=== PATIENT | male | born 1970 | race Caucasian/White ===

== ENCOUNTER 2017-09-22 15:18 | Emergency (ER) | payer MEDICAID, MEDICARE, OTHER ==
[~2017-09-22] VITALS: Ht 167.6 cm; Wt 68.0 kg
[2017-09-22 16:44] LABS: Basophils # (auto) 0.1 uL; Basophils % (auto) 0.9 % (0.0-2.0); Eosinophils # (auto) 0.3 uL; Eosinophils % (auto) 3.2 % (0.0-7.0); Hematocrit 45.1 % (41.0-53.0); Hemoglobin 15.5 g/dL (13.5-17.5); Lymphocytes # (auto) 2.2 uL; Lymphocytes % (auto) 26.5 % (10.0-50.0); Mean Corpuscular Hemoglobin 32.6 pg (28.0-32.0); Mean Corpuscular Hgb Conc. 34.3 g/dL (32.0-36.0); Mean Corpuscular Volume 95.1 fL (80.0-100.0); Monocytes # (auto) 0.6 uL; Monocytes % (auto) 7.3 % (0.0-12.0); Neutrophils # (auto) 5.3 uL; Neutrophils % (auto) 62.1 % (37.0-80.0); Platelet Count (auto) 267 10^3/uL (140-450); Red Blood Cells 4.74 10^6/uL (4.5-5.90); Red Cell Distribution Width 13.3 % (11.8-14.3); White Blood Cell 8.5 10^3/uL (4.4-10.8)
[2017-09-22 16:52] LABS: Alanine Aminotransferase 75 U/L (16-61); Albumin 3.7 g/dL (3.4-5.0); Anion Gap 8 (5-15); Aspartate Aminotransferase 43 U/L (15-37); BUN/Creatinine Ratio 12.8; Blood Urea Nitrogen 14 mg/dL (7-18); Calcium 8.2 mg/dL (8.5-10.1); Carbon Dioxide 29 mmol/L (21-32); Chloride 104 mmol/L (98-107); GFR African American 93 mL/min; GFR Non-African American 77 mL/min; Glucose 99 mg/dL (74-106); Magnesium 2.2 mg/dL (1.6-2.6); Potassium 3.6 mmol/L (3.5-5.1); Sodium 141 mmol/L (136-145)
[2017-09-22 16:57] LABS: Alkaline Phosphatase 100 U/L (45-117); Bilirubin, Total 0.3 mg/dL (0.2-1.0); Total Protein 7.3 g/dL (6.4-8.2)
[2017-09-22 18:12] VITALS: BP 143/113
== END 2017-09-22 18:17 | disposition home or self-care (01) ==
LOC: ER 15:18
DX: R07.89 Other chest pain (principal); F15.90 Other stimulant use, unspecified, uncomplicated; R11.2 Nausea with vomiting, unspecified; R42 Dizziness and giddiness; I25.2 Old myocardial infarction; F17.210 Nicotine dependence, cigarettes, uncomplicated; R50.9 Fever, unspecified; Z88.0 Allergy status to penicillin; Z88.8 Allergy status to other drugs, medicaments and biological substances
CPT/HCPCS: 36415; 70450; 71046; 80053; 83735; 84484; 85025; 93005; 94761

== ENCOUNTER 2024-07-20 04:09 | Inpatient (IN) | payer MEDICAID, MEDICARE ==
[~2024-07-20] VITALS: Ht 167.6 cm; Wt 81.2 kg
--- NOTE | 2024-07-20 04:26 | ED.PDOC ---
History of Present Illness HPI Comments 53 y/o M presents with c/o left-sided facial droop, left-sided weakness, and slurred speech, today. Patient endorses on sudden and unprovoked onset of symptoms, this morning, an hour prior to ED arrival, with no history of in the past. He denies any additional associated symptoms at this time. Time Seen by MD: 04:15 Primary Care Provider: CARMINE Reviewed Notes: Nurses Notes, Medications, Allergies Allergies: Coded Allergies: Amitriptyline (Verified Allergy, Unknown, 09/22/17) Haloperidol (Verified Allergy, Unknown, 09/22/17) Iodine (Verified Allergy, Unknown, 07/20/24) Ketorolac Tromethamine (Verified Allergy, Unknown, 07/20/24) Penicillins (Verified Allergy, Unknown, 09/22/17) Quetiapine (Verified Allergy, Unknown, 09/22/17) Information Source: Patient Mode of Arrival: Ambulatory Severity: Moderate Timing: Hours Duration: Since onset Prehospital treatment: None Past Medical History PAST MEDICAL HISTORY: [place] Surgical History: Hernia Repair Surgical History (Other): angioplasty Family History Family History: Unknown Social History Smoker: Cigarettes Alcohol: Denies ETOH Use Drugs: Marijuana, Methamphetamine Lives In: Home All Other Systems: Reviewed and Negative (Comprehensive systems review obtained and negative except for what is stated in the HPI.) Physical Exam General Appearance: Mild Distress HEENT: Normal ENT Inspection, Pharynx Normal, TMs Normal Neck: Full Range of Motion, Non-Tender, Normal, Normal Inspection Respiratory: Chest Non-Tender, Lungs Clear, No Accessory Muscle Use, No Respi ratory Distress, Normal Breath Sounds Cardiovascular: No Edema, No JVD, No Murmur, No Gallop, Normal Peripheral Pulses, Regular Rate/Rhythm Breast Exam: Deferred Gastrointestinal: No Organomegaly, Non Tender, No Pulsatile Mass, Normal Bowel Sounds, Soft Genitalia: Deferred Pelvic: Deferred Rectal: Deferred Extremities: No calf tenderness, Normal capillary refill, Normal inspection, Normal range of motion, Non-tender, No pedal edema Musculoskeletal : Apperance: Normal Neurologic: Facial Droop, Motor Weakness, Sensory Deficit, Other (NIH Stroke Scale/Score (NIHSS) from [email or web address] on 07/20/2024) Cerebellar Function: Normal Reflexes: Normal Skin: Dry, Normal Color, Warm Lymphatic: No Adenopathy Was a procedure done? Was a procedure done?: No Differential Dx Considerations may include: CVA, TIA, cerebral palsy, among others X-Ray, Labs, Meds, VS Vital Signs Date Time Temp Pulse Resp B/P (MAP) Pulse Ox O2 Delivery O2 Flow Rate FiO2 07/20/24 05:33 79 11 138/95 07/20/24 05:03 87 12 142/113 07/20/24 04:35 98.3 87 12 142/113 (123) 96 98.3 07/20/24 04:35 12 96 Room Air* 0 21 07/20/24 04:21 97.9 105 19 170/113 (132) 96 97.9 Lab Test 07/20/24 05:26 07/20/24 04:21 Range/Units Troponin I High Sensitivity Pending 5 </=54 ng/L White Blood Count 7.0 4.4-10.8 10^3/uL Red Blood Count 5.03 4.5-5.90 10^6/uL Hemoglobin 16.3 13.5-17.5 g/dL Hematocrit 48.3 41.0-53.0 % Mean Corpuscular Volume 96.1 80.0-100.0 fL Mean Corpuscular Hemoglobin 32.5 H 28.0-32.0 pg Mean Corpuscular Hemoglobin Concent 33.8 32.0-36.0 g/dL Red Cell Distribution Width 12.7 11.8-14.3 % Platelet Count 238 140-450 10^3/uL Mean Platelet Volume 9.1 6.9-10.8 fL Neutrophils (%) (Auto) 75.2 37.0-80.0 % Lymphocytes (%) (Auto) 19.9 10.0-50.0 % Monocytes (%) (Auto) 3.9 0.0-12.0 % Eosinophils (%) (Auto) 0.5 0.0-7.0 % Basophils (%) (Auto) 0.5 0.0-2.0 % Neutrophils # (Auto) 5.2 1.6-8.6 10 ^3/uL Lymphocytes # (Auto) 1.4 0.4-5.4 10 ^3/uL Monocytes # (Auto) 0.3 0-1.3 10 ^3/uL Eosinophils # (Auto) 0 0-0.8 10 ^3/uL Basophils # (Auto) 0 0-0.2 10 ^3/uL Nucleated Red Blood Cells 0.1 % Prothrombin Time 10.8 9.3-11.8 sec Prothrombin Time INR 1.02 0.9-1.15 Activated Partial Thromboplast Time 26.6 24.5-34.5 SEC Sodium Level 139 136-145 mmol/L Potassium Level 3.2 L 3.5-5.1 mmol/L Chloride Level 105 98-107 mmol/L Carbon Dioxide Level 24 20-31 mmol/L Anion Gap 10 5-15 Blood Urea Nitrogen 11 9-23 mg/dL Creatinine 0.88 0.700-1.30 mg/dL Glomerular Filtration Rate Calc 103 >90 mL/min BUN/Creatinine Ratio 12.5 10.0-20.0 Serum Glucose 122 H 74-106 mg/dL Calcium Level 9.9 8.7-10.4 mg/dL Magnesium Level 2.5 1.6-2.6 mg/dL Total Bilirubin 1.1 H 0.2-1.0 mg/dL Aspartate Amino Transferase (AST) 32 13-40 U/L Alanine Aminotransferase (ALT) 28 7-40 U/L Alkaline Phosphatase 73 46-116 U/L B-Type Natriuretic Peptide 15.94 0-100 pg/mL Total Protein 8.2 5.7-8.2 g/dL Albumin 5.3 H 3.2-4.8 g/dL Current Medications Medications (Trade) Dose Ordered Sig/Indigo Route Start Time Stop Time Status Last Admin Morphine Sulfate 4 mg ONCE ONCE IV 07/20/24 05:00 07/20/24 05:01 DC 07/20/24 05:03 Ondansetron HCl (Zofran) 4 mg ONCE ONCE IV 07/20/24 05:00 07/20/24 05:01 DC 07/20/24 05:[address] [address] Ph: [phone] DIAGNOSTIC IMAGING Diagnostic Imaging Report : [id number] Signed with Ulises PATIENT: MYRA ALBA ACCT: [id number] UNIT: [id number] : 1970 LOC: ER ROOM / BED: / AGE / SEX: 53 / M ADM STATUS: REG ER SERVICE [id number] ORDERING PHYSICIAN: DENISE KHAN MD PROCEDURE(s): CTH - STROKE CTH REASON: Left sided weakness, left facial droop, slurred speech x 1 h ORDER NUMBER(s): [id number], ACCESSION NUMBER(s): [id number] ADDENDUM ADDENDUM # 1 Critical result: Code stroke results Findings discussed with Dr. Khan on 07/20/2024 at 6:40 a.m. HOOD FITTER, with acknowledged receipt and understanding of the findings. ORIGINAL REPORT EXAM: CT STROKE CTH INDICATION: Left sided weakness, left facial droop, slurred speech x 1 h TECHNIQUE: CT of the head without intravenous contrast. Coronal and sagittal reformatted images are submitted. Radiation Dose : 1. Head: CT Dose: CTDI volume is 62.5 mGy. Dose-length product is 1230.1 mGy*cm The dose indicators for CT are the volume Computed Tomography (CT) Dose Index (CTDIvol) and the Dose Length Product (DLP), and are measured in units of mGy and mGy-cm, respectively. These indicators are not patient dose, but values generated from the CT scanner acquisition factors. The report includes radiation exposure data for exposures received during this examination. All CT scans at this medical facility are performed using dose modulation techniques as appropriate to a performed exam including the following: Automated exposure control was utilized; adjustment of the MA and/or KV according to patient size; and use of iterative reconstruction technique. COMPARISON: None FINDINGS: There is no evidence of acute intracranial hemorrhage, extra-axial collection, mass effect, midline shift, herniation or hydrocephalus. The ventricles, sulci and cisterns are age appropriate. The herndon-white differentiation is intact. The mastoid air cells are clear. Mucosal thickening in the right maxillary sinus. No depressed calvarial fracture. The surrounding soft tissues are unremarkable. IMPRESSION: 1. No evidence of acute intracranial abnormality. ATED BY: MADELAINE SMITH MD DICTATED DATE/TIME: 07/20/24455 SIGNED BY: MADELAINE SMITH MD SIGNED DATE/TIME: 07/20/24455 CC: EXAM: CT STROKE CTH INDICATION: Left sided weakness, left facial droop, slurred speech x 1 h TECHNIQUE: CT of the head without intravenous contrast. Coronal and sagittal reformatted images are submitted. Radiation Dose : 1. Head: CT Dose: CTDI volume is 62.5 mGy. Dose-length product is 1230.1 mGy*cm The dose indicators for CT are the volume Computed Tomography (CT) Dose Index (CTDIvol) and the Dose Length Product (DLP), and are measured in units of mGy and mGy-cm, respectively. These indicators are not patient dose, but values generated from the CT scanner acquisition factors. The report includes radiation exposure data for exposures received during this examination. All CT scans at this medical facility are performed using dose modulation techniques as appropriate to a performed exam including the following: Automated exposure control was utilized; adjustment of the MA and/or KV according to patient size; and use of iterative reconstruction technique. COMPARISON: None FINDINGS: There is no evidence of acute intracranial hemorrhage, extra-axial collection, mass effect, midline shift, herniation or hydrocephalus. The ventricles, sulci and cisterns are age appropriate. The herndon-white differentiation is intact. The mastoid air cells are clear. Mucosal thickening in the right maxillary sinu s. No depressed calvarial fracture. The surrounding soft tissues are unremarkable. IMPRESSION: 1. No evidence of acute intracranial abnormality. ATED BY: MADELAINE SMITH MD DICTATED DATE/TIME: 07/20/24444 SIGNED BY: MADELAINE SMITH MD SIGNED DATE/TIME: 07/20/24444 CC: [place] [id number] Ph: [phone] DIAGNOSTIC IMAGING Diagnostic Imaging Report : [id number] Signed PATIENT: MYRA ALBA ACCT: [id number] UNIT: [id number] : 1970 LOC: ER ROOM / BED: / AGE / SEX: 53 / M ADM STATUS: REG ER SERVICE ORDERING PHYSICIAN: DENISE KHAN MD PROCEDURE(s): CXR1 - CHEST XRAY 1 VIEW REASON: left sided weak / code stroke ORDER NUMBER(s): [id number], ACCESSION NUMBER(s): [id number] CHEST RADIOGRAPH Indication: left sided weak / code stroke Technique: Single frontal view of the chest was obtained COMPARISON: None FINDINGS: Lines and Tubes: None Lungs: Clear Pleura: No effusion. No pneumothorax. Cardiomediastinal contours: Unremarkable Bones: Unremarkable IMPRESSION: No acute disease. ATED BY: JULIEN CANADA MD DICTATED DATE/TIME: 07/20/24446 SIGNED BY: JULIEN CANADA MD SIGNED DATE/TIME: 07/20/24446 CC: Time of 1ST Reevaluation: 04:45 Reevaluation 1ST: Unchanged Consultation: Neurology ([id number]) Patient Education/Counseling: Diagnosis, Treatment Family Education/Counseling: No Family Present Additional Information Previous medical encounters reviewed: Sep 22, 2017 encounter for atypical chest pain The following tests were ordered, and results were reviewed by me: CXR, CT angio head/neck, head CVA, head w/o contrast, EKG, troponin, BNP, prothrombin time w/reflex, magnesium, CMP, CBC Additional Information was gathered from interviewing the following independent historians: n/a I reviewed and agreed with the following test results read by other providers: CXR, CT angio head/neck, head CVA, head w/o contrast, I discussed treatment and results with medical personnel and: Patient Departure 1 Departure Time of Disposition: 05:51 Impression: Primary Impression: Ischemic stroke Disposition: 09 ADMITTED INPATIENT Admit to: Tele Condition: Guarded Comments Left-Sided Weakness and Facial Droop - Acute Stroke Chief Complaint: Left-sided weakness, facial droop, and slurred speech History of Present Illness: 53-year-old male with a history of coronary artery disease and hypertension who presents to the Emergency Department with acute onset of left-sided weakness, left facial droop, and slurred speech. Patient woke up with these symptoms appro ximately one hour prior to ED arrival. Last known well was the previous night before going to sleep. A code stroke was activated upon arrival, and neurology service was consulted. Initial NIHSS score was 10 on examination. 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 Coronary artery disease 2. Hypertension Physical Exam: Neurological Exam: - NIHSS score: 10 - Left-sided weakness - Left facial droop - Slurred speech NIH Stroke Scale/Score (NIHSS) [facility] on 07/20/2024 RESULT SUMMARY: 10 points NIH Stroke Scale INPUTS: 1A: Level of consciousness > 0 = Alert; keenly responsive 1B: Ask month and age > 0 = Both questions right 1C: 'Blink eyes' & 'squeeze hands' > 0 = Performs both tasks 2: Horizontal extraocular movements > 0 = Normal 3: Visual kelley > 0 = No visual loss 4: Facial palsy > 2 = Partial paralysis (lower face) 5A: Left arm motor drift > 2 = Some effort against gravity 5B: Right arm motor drift > 0 = No drift for 10 seconds 6A: Left leg motor drift > 2 = Some effort against gravity 6B: Right leg motor drift > 0 = No drift for 5 seconds 7: Limb Ataxia > 0 = No ataxia 8: Sensation > 1 = Mild-moderate loss: can sense being touched 9: Language/aphasia > 1 = Mild-moderate aphasia: some obvious changes, without significant limitation 10: Dysarthria > 1 = Mild-moderate dysarthria: slurring but can be understood 11: Extinction/inattention > 1 = Visual/tactile/auditory/spatial/personal inattention Lab Results: CBC: Unremarkable Chemistry: - Potassium: 3.2 (Low) - Total bilirubin: 1.1 (Slightly elevated) Imaging and Other Relevant Results: 1. CT head without contrast: - No acute pathology 2. Chest X-ray: - No acute pathology 3. MRI brain: - Pending (ordered due to contrast allergy) Medical Decision Making: Summary Statement: 53-year-old male with cardiovascular risk factors presenting with acute onset left-sided weakness, facial droop, and slurred speech concerning for acute stroke. Problem List: 1. Acute stroke symptoms 2. Hypokalemia 3. Known coronary artery disease 4. Hypertension Differential Diagnosis: 1. Acute ischemic stroke 2. Stroke mimics (Srikanth's paralysis, complex migraine) 3. Intracranial hemorrhage (ruled out by CT) ED Course: Patient presented with stroke symptoms and code stroke was activated. CT head showed no acute pathology. Neurology evaluated and determined patient was not a candidate for thrombolytics due to wake-up stroke with unknown last known well time. Labs showed mild hypokalemia. MRI ordered for further evaluation. Assessment and Plan: 1. Acute Stroke: - Admit to hospital for further stroke workup - Not a candidate for thrombolytics due to wake-up stroke - Initiated aspirin - Pending MRI brain 2. Hypokalemia (K=3.2): - Will be addressed during admission 3. Cardiovascular Risk Factors: - Continue home medications - Risk factor modification during admission Billing Information: ICD-10: I63.9 - Cerebral infarction, unspecified ICD-10: E87.6 - Hypokalemia ICD-10: I25.10 - Atherosclerotic heart disease of [place] coronary artery ICD-10: I10 - Essential (primary) hypertension Critical Care Note Critical Care Time?: Yes (35 min-critical care time only) Critical care comment: Total critical care time: Approximately 36 minutes Due to a high probability of clinically significant, life threatening deterioration, the patient required my highest level of preparedness to intervene emergently and I personally spent this critical care time directly and personally managing the patient. This critical care time included obtaining a history; examining the patient; pulse oximetry; ordering and review of studies; arranging urgent treatment with development of a management plan; evaluation of patient's response to treatment; frequent reassessment; and, discussions with other providers. This critical care time was performed to assess and manage the high probability of imminent, life-threatening deterioration that could result in multi-organ failure. It was exclusive of separately billable procedures and treating other patients. Stability Stability form required: No Heart Score Heart Score: Heart Score Response (Comments) Value History N/A 0 EKG N/A 0 Age N/A 0 Risk Factors N/A 0 Troponin N/A 0 Total 0 I personally scribed for DENISE KHAN MD ([email or web address]) on 07/20/24 at 04:26. Electronically submitted by Gerard Hoffmann ([email or web address]). I personally scribed for DENISE KHAN MD ([email or web address]) on 07/20/24 at 05:24. Electronically submitted by Gerard Hoffmann ([email or web address]). DENISE KHAN MD Jul 20, 2024 04:26
[2024-07-20 04:35] VITALS: RESP 12; O2SAT 96
--- NOTE | 2024-07-20 04:42 | BSKYNEURO ---
[place] [facility] Note # Demographics Consult Type: Acute Stroke Level 1 (0-4.5 hrs) Patient Location: Emergency Room First Name: jacoby Last Name: tasha Date of : 1970 Age: 53 Gender: Male Facility: [facility] Time of Initial Page (): 07/20/2024 04:23 Time of Return Call (): 07/20/2024 04:23 # HPI History: 53yo M developed left sided weakness and facial droop, since around 0330 on waking. last normal at 2100 Last Known Normal: - I have collected independent history specific to time last normal or last known well. We have collaborated with the provider and at this time, we have the most current timeline with the information that is available. 2100 # Scores Time of exam and NIHSS (): 07/20/2024 04:36 Level of Consciousness 1a: [0] = Alert; keenly responsive LOC Questions 1b: [0] = Answers both questions correctly LOC Commands 1c: [0] = Performs both tasks correctly Best Gaze 2: [0] = Normal Visual 3: [0] = No visual loss Facial Palsy 4: [1] = Minor paralysis Motor Arm Left 5a: [2] = Some effort against gravity Motor Arm Right 5b: [0] = No drift Motor Leg Left 6a: [2] = Some effort against gravity Motor Leg Right 6b: [0] = No drift Limb Ataxia 7: [0] = Absent Sensory 8: [1] = Woow-ee-wdukccoj sensory loss Best Language 9: [0] = No aphasia Dysarthria 10: [0] = Normal Extinction and Inattention 11: [0] = No abnormality NIHSS Total: 6 # Exam Cranial Nerves: fluctuates how much he moves his mouth to speak Motor: appears to give poor effort on the left. at times able to lift left arm with minimal to no drift, then states he cannot lift at all # Assessment Impression: - Stroke Mimic multiple atypical features on exam to suggest mimic over neurologic cause. This is not a TIA if MRI negative # Plan Thrombolytic/Intervention: NOT IV Thrombolysis or IA Intervention candidate Thrombolytic Exclusion: > 4.5 hours Intraarterial Exclusion: - clinical exam not consistent with presence of large vessel occlusion (LVO), can reconsider if LVO found on vascular imaging Imaging: (urgency: STAT): - CT Angiogram Head and CT Angiogram Neck AND call back with results if abnormal Imaging: (urgency: routine): - MRI Brain without contrast Other: - If patient has any neurological deterioration please call me back immediately - would not pursue stroke work-up if MRI is negative # Logistics Attestation of consult completion: The patient is located at: [facility]. Facility staff participated in the visit. I performed this telemedici ne visit from my offsite office utilizing interactive 2 way audio and visual telecommunication technology. Total time spent in telemedicine encounter: I spent 10 minutes reviewing clinical data and/or imaging, obtaining history, examining the patient, com municating with the onsite care team, and in preparation of this report. # Demographics First Name: jacoby Last Name: tasha Facility: [facility] Yes LEYDI PARKER DO Jul 20, 2024 04:42
[2024-07-20] MEDS ORDERED: ALTEPLASE (RECOMBINANT) 100 MG VIAL IV ONE (04:45)
[2024-07-20] MEDS: TENECTEPLASE 50mg/10ml KIT IV ONE (04:47)
--- NOTE | 2024-07-20 04:48 | DVH ---
EXAM: CT STROKE CTH INDICATION: Left sided weakness, left facial droop, slurred speech x 1 h TECHNIQUE: CT of the head without intravenous contrast. Coronal and sagittal reformatted images are s ubmitted. Radiation Dose : 1. Head: CT Dose: CTDI volume is 62.5 mGy. Dose-length product is 1230.1 mGy*cm The dose indicators for CT are the volume Computed Tomography (CT) Dose Index (CTDIvol) and the Dose Length Product (DLP), and are measured in units of mGy and mGy-cm, respectively. These indicators are not patient dose, but values generated from the CT scanner acquisition factors. The report includes radiation exposure data for exposures received during this examination. All CT scans at this medical facility are performed using dose modulation techniques as appropriate to a performed exam including the following: Automated exposure control was utilized; adjustment of the MA and/or KV according to patient size; and use of iterative reconstruction technique. COMPARISON: None FINDINGS: There is no evidence of acute intracranial hemorrhage, extra-axial collection, mass effect, midline s hift, herniation or hydrocephalus. The ventricles, sulci and cisterns are age appropriate. The herndon-white differentiation is intact. The mastoid air cells are clear. Mucosal thickening in the right maxillary sinus. No depressed calvarial fracture. The surrounding soft tissues are unremarkable. IMPRESSION: 1. No evidence of acute intracranial abnormality.
--- NOTE | 2024-07-20 04:49 | DVH ---
CHEST RADIOGRAPH Indication: left sided weak / code stroke Technique: Single frontal view of the chest was obtained COMPARISON: None FINDINGS: Lines and Tubes: None Lungs: Clear Pleura: No effusion. No pneumothorax. Cardiomediastinal contours: Unremarkable Bones: Unremarkable IMPRESSION: No acute disease.
[2024-07-20 05:00] LABS: Basophils # (auto) 0 10 ^3/uL (0-0.2); Basophils % (auto) 0.5 % (0.0-2.0); Eosinophils # (auto) 0 10 ^3/uL (0-0.8); Eosinophils % (auto) 0.5 % (0.0-7.0); Hematocrit 48.3 % (41.0-53.0); Hemoglobin 16.3 g/dL (13.5-17.5); Lymphocytes # (auto) 1.4 10 ^3/uL (0.4-5.4); Lymphocytes % (auto) 19.9 % (10.0-50.0); Mean Corpuscular Hemoglobin 32.5 pg (28.0-32.0); Mean Corpuscular Hgb Conc. 33.8 g/dL (32.0-36.0); Mean Corpuscular Volume 96.1 fL (80.0-100.0); Monocytes # (auto) 0.3 10 ^3/uL (0-1.3); Monocytes % (auto) 3.9 % (0.0-12.0); Neutrophils # (auto) 5.2 10 ^3/uL (1.6-8.6); Neutrophils % (auto) 75.2 % (37.0-80.0); Nucleated Red Blood Cells % 0.1 %; Platelet Count (auto) 238 10^3/uL (140-450); Red Blood Cells 5.03 10^6/uL (4.5-5.90); Red Cell Distribution Width 12.7 % (11.8-14.3)
[2024-07-20] MEDS: ONDANSETRON HCL 4 MG/2 ML VIAL IV ONE (05:02)
[2024-07-20] MEDS: MORPHINE SULFATE 4 MG/ML SYR/VIAL IV ONE (05:03)
[2024-07-20 05:09] LABS: Alanine Aminotransferase 28 U/L (7-40); Alkaline Phosphatase 73 U/L (46-116); Anion Gap 10 (5-15); Aspartate Aminotransferase 32 U/L (13-40); BUN/Creatinine Ratio 12.5 (10.0-20.0); Bilirubin, Total 1.1 mg/dL (0.2-1.0); Blood Urea Nitrogen 11 mg/dL (9-23); Calcium 9.9 mg/dL (8.7-10.4); Carbon Dioxide 24 mmol/L (20-31); Chloride 105 mmol/L (98-107); Magnesium 2.5 mg/dL (1.6-2.6); Sodium 139 mmol/L (136-145)
[2024-07-20 05:11] LABS: Albumin 5.3 g/dL (3.2-4.8); Glucose 122 mg/dL (74-106); Potassium 3.2 mmol/L (3.5-5.1); Total Protein 8.2 g/dL (5.7-8.2)
[2024-07-20] MEDS: FAMOTIDINE (10MG/ML) 2ML VL IV ONE (05:12)
[2024-07-20] MEDS: diphenhdrAMINE HCL 50 MG/1 ML VL IV ONE ×2 (05:12→15:32)
[2024-07-20] MEDS: methylPREDNISolone SOD SUCC 125 MG/2 ML VL IV ONE (05:13)
[2024-07-20 05:17] LABS: INR 1.02 (0.9-1.15); Partial Thromboplastin Time 26.6 SEC (24.5-34.5); Prothrombin Time 10.8 sec (9.3-11.8)
[2024-07-20] MEDS: ASPirin 81 mg TAB PO ONE (06:47)
[2024-07-20 07:30] VITALS: PULSE 80; RESP 16; O2SAT 96
[2024-07-20] MEDS: ACETAMINOPHEN 325 MG TAB PO ONE (09:14)
[2024-07-20] MEDS ORDERED: ONDANSETRON HCL 4 MG/2 ML VIAL IV PRN (10:45)
--- NOTE | 2024-07-20 10:52 | DVHHP2 ---
History of Present Illness Reason for Visit: Left-sided weakness History of Present Illness Santos Robins is a 53-year-old male with past medical history of hypertension, hyperlipidemia, depression, anxiety, and angioplasty per patient reports who presents to the ED with left-sided weakness that started at 3:30 a.m. this morning. Patient also reports that he quit smoking cigarettes but still uses marijuana and meth. Patient states he was walking to the bathroom when the weakness occurred. He had his friend bring him to the ER to be evaluated. Patient denies chest pain, fever, chills, recent trauma or injury, recent sick contacts, chest pain, sob, abdominal pain, nausea, vomiting, or diarrhea. Cardiovascular: HTN, OK, hyperipidemia Psych: Anxiety, Depression Past Surgical History: Hernia Repair, Other (Angioplasty) Family History: None Smoke: Quit ALCOHOL: none Drugs: Marijuana, Other (Methamphetamine) Lives: with Family Domestic Violence: Neg Review of Systems Musculoskeletal: other (Left upper extremity and left lower extremity weakness) Allergies: Coded Allergies: Amitriptyline (Verified Allergy, Unknown, 09/22/17) Haloperidol (Verified Allergy, Unknown, 09/22/17) Iodine (Verified Allergy, Unknown, 07/20/24) Ketorolac Tromethamine (Verified Allergy, Unknown, 07/20/24) Penicillins (Verified Allergy, Unknown, 09/22/17) Quetiapine (Verified Allergy, Unknown, 09/22/17) Exam Vital Signs Vital Signs Date Time Temp Pulse Resp B/P (MAP) Pulse Ox O2 Delivery O2 Flow Rate FiO2 07/20/24 10:30 92 16 101/61 (74) 96 07/20/24 07:30 Room Air* 0 21 07/20/24 07:30 97.6 97.6 General Appearance: Alert, Oriented X3, Cooperative, No acute distress HEENT: Atraumatic, PERRLA, EOMI, Mucous membr. moist/pink Respiratory: Clear to auscultation, Normal air movement Cardiovascular: Regular rate, Normal S1, Normal S2, No murmurs Abdominal: Normal bowel sounds, Soft, No tenderness, No hepatospenomegaly, No masses Extremities: No clubbing, No cyanosis, No edema, Normal pulses, No tenderness/swelling, Other (Left upper extremity weakness and left lower extremity weakness) Skin: No significant lesion Neuro: Normal speech, Sensation intact Psych/Mental Status: Mental status NL, Mood NL Labs/Xrays Labs Test 07/20/24 05:26 07/20/24 04:21 Range/Units Troponin I High Sensitivity 5 </=54 ng/L White Blood Count 7.0 4.4-10.8 10^3/uL Red Blood Count 5.03 4.5-5.90 10^6/uL Hemoglobin 16.3 13.5-17.5 g/dL Hematocrit 48.3 41.0-53.0 % Mean Corpuscular Volume 96.1 80.0-100.0 fL Mean Corpuscular Hemoglobin 32.5 H 28.0-32.0 pg Mean Corpuscular Hemoglobin Concent 33.8 32.0-36.0 g/dL Red Cell Distribution Width 12.7 11.8-14.3 % Platelet Count 238 140-450 10^3/uL Mean Platelet Volume 9.1 6.9-10.8 fL Neutrophils (%) (Auto) 75.2 37.0-80.0 % Lymphocytes (%) (Auto) 19.9 10.0-50.0 % Monocytes (%) (Auto) 3.9 0.0-12.0 % Eosinophils (%) (Auto) 0.5 0.0-7.0 % Basophils (%) (Auto) 0.5 0.0-2.0 % Neutrophils # (Auto) 5.2 1.6-8.6 10 ^3/uL Lymphocytes # (Auto) 1.4 0.4-5.4 10 ^3/uL Monocytes # (Auto) 0.3 0-1.3 10 ^3/uL Eosinophils # (Auto) 0 0-0.8 10 ^3/uL Basophils # (Auto) 0 0-0.2 10 ^3/uL Nucleated Red Blood Cells 0.1 % Prothrombin Time 10.8 9.3-11.8 sec Prothrombin Time INR 1.02 0.9-1.15 Activated Partial Thromboplast Time 26.6 24.5-34.5 SEC Sodium Level 139 136-145 mmol/L Potassium Level 3.2 L 3.5-5.1 mmol/L Chloride Level 105 98-107 mmol/L Carbon Dioxide Level 24 20-31 mmol/L Anion Gap 10 5-15 Blood Urea Nitrogen 11 9-23 mg/dL Creatinine 0.88 0.700-1.30 mg/dL Glomerular Filtration Rate Calc 103 >90 mL/min BUN/Creatinine Ratio 12.5 10.0-20.0 Serum Glucose 122 H 74-106 mg/dL Calcium Level 9.9 8.7-10.4 mg/dL Magnesium Level 2.5 1.6-2.6 mg/dL Total Bilirubin 1.1 H 0.2-1.0 mg/dL Aspartate Amino Transferase (AST) 32 13-40 U/L Alanine Aminotransferase (ALT) 28 7-40 U/L Alkaline Phosphatase 73 46-116 U/L B-Type Natriuretic Peptide 15.94 0-100 pg/mL Total Protein 8.2 5.7-8.2 g/dL Albumin 5.3 H 3.2-4.8 g/dL ADDENDUM # 1 Critical result: Code stroke results Findings discussed with Dr. Cancino on 07/20/2024 at 6:40 a.m. [employer], with acknowledged receipt and understanding of the findings. ORIGINAL REPORT EXAM: CT STROKE CTH INDICATION: Left sided weakness, left facial droop, slurred speech x 1 h TECHNIQUE: CT of the head without intravenous contrast. Coronal and sagittal reformatted images are submitted. Radiation Dose : 1. Head: CT Dose: CTDI volume is 62.5 mGy. Dose-length product is 1230.1 mGy*cm The dose indicators for CT are the volume Computed Tomography (CT) Dose Index (CTDIvol) and the Dose Length Product (DLP), and are measured in units of mGy an d mGy-cm, respectively. These indicators are not patient dose, but values generated from the CT scanner acquisition factors. The report includes radiation exposure data for exposures received during this examination. All CT scans at this medical facility are performed using dose modulation techniques as appropriate to a performed exam including the following: Automated exposure co ntrol was utilized; adjustment of the MA and/or KV according to patient size; and use of iterative reconstruction technique. COMPARISON: None FINDINGS: There is no evidence of acute intracranial hemorrhage, extra-axial collection, mass effect, midline shift, herniation or hydrocephalus. The ventricles, sulci and cisterns are age appropriate. The herndon-white differentiation is intact. The mastoid air cells are clear. Mucosal thickening in the right maxillary sinus. No depressed calvarial fracture. The surrounding soft tissues are unremarkable. IMPRESSION: 1. No evidence of acute intracranial abnormality. : EXAM: CT STROKE CTH INDICATION: Left sided weakness, left facial droop, slurred speech x 1 h TECHNIQUE: CT of the head without intravenous contrast. Coronal and sagittal reformatted images are submitted. Radiation Dose : 1. Head: CT Dose: CTDI volume is 62.5 mGy. Dose-length product is 1230.1 mGy*cm The dose indicators for CT are the volume Computed Tomography (CT) Dose Index (CTDIvol) and the Dose Length Product (DLP), and are measured in units of mGy and mGy-cm, respectively. These indicators are not patient dose, but values generated from the CT scanner acquisition factors. The report includes radiation exposure data for exposures received during this examination. All CT scans at this medical facility are performed using dose modulation techniques as appropriate to a performed exam including the following: Automated exposure control was utilized; adjustment of the MA and/or KV according to patient size; and use of iterative reconstruction technique. COMPARISON: None FINDINGS: There is no evidence of acute intracranial hemorrhage, extra-axial collection, mass effect, midline shift, herniation or hydrocephalus. The ventricles, sulci and cisterns are age appropriate. The herndon-white differentiation is intact. The mastoid air cells are clear. Mucosal thickening in the right maxillary sinus. No depressed calvarial fracture. The surrounding soft tissues are unremarkable. IMPRESSION: 1. No evidence of acute intracranial abnormality. CHEST RADIOGRAPH Indication: left sided weak / code stroke Technique: Single frontal view of the chest was obtained COMPARISON: None FINDINGS: Lines and Tubes: None Lungs: Clear Pleura: No effusion. No pneumothorax. Cardiomediastinal contours: Unremarkable Bones: Unremarkable IMPRESSION: No acute disease. Assessment/Plan Assessment/Plan Assessment Left-sided weakness Rule out stroke Hyperbilirubinemia Hypokalemia Ex tobacco use Polysubstance abuse History of hypertension History of hyperlipidemia History of depression History of anxiety History of OK History of hernia repair History of angioplasty Plan Admit to med [employer] Swallow eval UA Replete lytes CT head noted Aspirin tylenol IV steroids Antiemetics Pain management Antihypertensives MRI brain PPIs Troponin negative x2 EKG BNP Chest x-ray noted PT INR PTT Mag level Counseled patient on cessation of polysubstance abuse Counseled patient on tobacco cessation Home medications reconciled DVT prophylaxis-Lovenox PUD prophylaxis-not indicated no history of GERD or GI bleed Neuro consult by ED Plan discussed with: Patient My Orders Orders - FLORIN RIVERA Procedure Category Date Status Time Admit ADMIT 07/20/24 Transmitted 10:32 Allergies KALA 07/20/24 Transmitted 10:32 Code Status CODE 07/20/24 Transmitted 10:32 Ondansetron Hcl PHA 07/20/24 Transmitted (Zofran) 10:45 Complete Blood Count LAB 07/21/24 Verified 04:00 Comprehensive LAB 07/21/24 Verified Metabolic Panel 04:00 Cardiac DIET 07/20/24 Transmitted Diet-2gna,Lofat,Lochol Lunch Acetaminophen Tablet PHA 07/20/24 Transmitted (Tylenol Tablet) 10:45 Urinalysis LAB 07/20/24 Verified 10:35 Potassium Er Tablet PHA 07/20/24 Verified (Klor-Con Tablet) 10:45 Date of Service: Jul 20, 2024 Billing Provider: FLORIN RIVERA Common Visit Codes: [id number] INP/OBS CARE (HIGH) FLORIN RIVERA Jul 20, 2024 10:52
[2024-07-20] MEDS ORDERED: METO1TAB9 PO (10:53)
[2024-07-20] MEDS ORDERED: AMLO1TAB23 PO (10:53)
[2024-07-20] MEDS ORDERED: LISI40TA16 PO (10:53)
[2024-07-20] MEDS ORDERED: ATOR20TA50 PO (10:53)
[2024-07-20] MEDS: POTASSIUM CHL 20 Meq TABLET PO ONE (11:06)
[2024-07-20] MEDS: HYDROcodone-ACET 5/325MG TAB PO ONE (13:23)
[2024-07-20] MEDS: LORazepam 2MG/ML-1ML VIAL IV ONE (14:56)
[2024-07-20] MEDS: LORazepam 2MG/ML-1ML VIAL IM ONE (15:37)
[2024-07-20] MEDS: diphenhdrAMINE HCL 50 MG/1 ML VL IM ONE (15:45)
[2024-07-20 19:40] VITALS: PULSE 74; RESP 20; O2SAT 100
[2024-07-20] MEDS: ATORVASTATIN 20 MG TAB PO SCH (22:00)
[2024-07-20 22:45] VITALS: BP 143/90; PULSE 85; RESP 20; TEMP 96.9; O2SAT 100
[2024-07-20 22:48] VITALS: PULSE 85; RESP 20; O2SAT 100
[2024-07-20] MEDS: traMADol HCL 50 MG TAB PO ONE (23:41)
[2024-07-21] VITALS (7 sets, daily range): BP systolic 10–136; BP diastolic 52–89; PULSE 60–78; RESP 16–20; TEMP 97.9–98.6; O2SAT 93–97
[2024-07-21 07:08] LABS: Alanine Aminotransferase 17 U/L (7-40); Albumin 3.7 g/dL (3.2-4.8); Alkaline Phosphatase 50 U/L (46-116); Anion Gap 8 (5-15); Aspartate Aminotransferase 19 U/L (13-40); BUN/Creatinine Ratio 18.5 (10.0-20.0); Bilirubin, Total 0.6 mg/dL (0.2-1.0); Blood Urea Nitrogen 20 mg/dL (9-23); Calcium 9.2 mg/dL (8.7-10.4); Carbon Dioxide 26 mmol/L (20-31); Chloride 105 mmol/L (98-107); Potassium 3.8 mmol/L (3.5-5.1); Sodium 139 mmol/L (136-145); Total Protein 5.8 g/dL (5.7-8.2)
[2024-07-21 07:09] LABS: Glucose 109 mg/dL (74-106)
[2024-07-21 07:16] LABS: Basophils # (auto) 0 10 ^3/uL (0-0.2); Basophils % (auto) 0.1 % (0.0-2.0); Eosinophils # (auto) 0 10 ^3/uL (0-0.8); Eosinophils % (auto) 0.4 % (0.0-7.0); Hemoglobin 13.3 g/dL (13.5-17.5); Lymphocytes # (auto) 1.9 10 ^3/uL (0.4-5.4); Lymphocytes % (auto) 22.2 % (10.0-50.0); Mean Corpuscular Hemoglobin 32.8 pg (28.0-32.0); Mean Corpuscular Volume 96.4 fL (80.0-100.0); Monocytes # (auto) 1.3 10 ^3/uL (0-1.3); Monocytes % (auto) 14.5 % (0.0-12.0); Neutrophils # (auto) 5.4 10 ^3/uL (1.6-8.6); Neutrophils % (auto) 62.8 % (37.0-80.0); Nucleated Red Blood Cells % 0.1 %; Platelet Count (auto) 195 10^3/uL (140-450); Red Blood Cells 4.05 10^6/uL (4.5-5.90); Red Cell Distribution Width 12.7 % (11.8-14.3); White Blood Cell 8.7 10^3/uL (4.4-10.8)
[2024-07-21] MEDS: LISINOPRIL 20 MG TAB PO SCH (09:19)
[2024-07-21] MEDS: METOPROLOL SUCCINATE XL 50 MG TAB PO SCH (09:20)
[2024-07-21] MEDS: amLODIPine BESYLATE 5 MG TAB PO SCH (09:21)
[2024-07-21] MEDS: ASPirin-EC 81 mg tab PO SCH (09:21)
[2024-07-21] MEDS: ENOXAPARIN SOD 40 MG/0.4 ML SYRINGE SC SCH (09:22)
[2024-07-21] MEDS ORDERED: traMADol HCL 50 MG TAB PO PRN (10:30)
[2024-07-21] MEDS: ACETAMINOPHEN 325 MG TAB PO PRN (11:04)
[2024-07-21] MEDS: MORPHINE SULFATE INJ 2 MG/ml SYRG IV PRN (13:19)
--- NOTE | 2024-07-21 15:18 | DVHPN2 ---
Subjective Feels weak and numb on the left side and headache Reviewed: Care Plan, H&P, Labs, Medications, Previous Orders, Radiology Changes from previous H/P or p: No Changes Musculoskeletal: other Objective Vitals Vital Signs Date Time Temp Pulse Resp B/P (MAP) Pulse Ox O2 Delivery O2 Flow Rate FiO2 07/21/24 13:51 62 17 110/60 07/21/24 12:54 98.3 94 98.3 07/21/24 08:30 Room Air* 0 21 Intake/Output Intake and Output 07/21/24 07:00 Intake Total 1145 ml Output Total 600 ml Balance 545 ml Intake Oral 1145 ml Output Urine Total 600 ml General Appearance: Alert, Oriented X3, Cooperative, No acute distress HEENT: Atraumatic Lungs: Clear to auscultation Cardiovascular: Regular rate Neuro: Other (Seems there is weakness in the left upper left lower extremity and decreased sensory in upper and left lower extremity. Questionable.) Medications Current Medications Medications Dose Ordered Sig/Indigo Route Start Time Stop Time Status Last Admin Dose Admin Ondansetron HCl 4 mg Q4HP PRN IV 07/20/24 10:45 Acetaminophen 650 mg Q6HP PRN PO 07/20/24 10:45 07/21/24 11:04 650 MG Atorvastatin Calcium 20 mg HS PO 07/20/24 22:00 Amlodipine Besylate 10 mg DAILY PO 07/21/24 10:00 07/21/24 09:21 10 MG Lisinopril 40 mg DAILY PO 07/21/24 10:00 07/21/24 09:19 40 MG Metoprolol Succinate 100 mg DAILY PO 07/21/24 10:00 07/21/24 09:20 100 MG Aspirin 81 mg DAILY PO 07/21/24 10:00 07/21/24 09:21 81 MG Enoxaparin Sodium 40 mg DAILY SC 07/21/24 10:00 07/21/24 09:22 40 MG Tramadol HCl 50 mg Q6HP PRN PO 07/21/24 10:30 Morphine Sulfate 2 mg Q4HPRN PRN IV 07/21/24 13:15 07/21/24 13:19 2 MG Laboratory Results Laboratory Tests 07/21/24 04:32 Chemistry Test 07/21/24 04:32 Albumin 3.7 g/dL (3.2-4.8) Calcium Level 9.2 mg/dL (8.7-10.4) Total Protein 5.8 g/dL (5.7-8.2) LFT Test 07/21/24 04:32 Alanine Aminotransferase (ALT) 17 U/L (7-40) Alkaline Phosphatase 50 U/L (46-116) Aspartate Amino Transferase (AST) 19 U/L (13-40) Total Bilirubin 0.6 mg/dL (0.2-1.0) Assessment/Plan Assessment/Plan Left upper and left lower extremity weakness and numbness Hypertension Dyslipidemia History of [place] and PTCA Anxiety Depression History of methamphetamine and marijuana use Plan: Check head MRI. Carotid ultrasound. Echocardiogram. Neurology consultation. Further plan per orders Plan discussed with: Patient My Orders Orders - JAMEY JONES MD Procedure Category Date Status Time Tramadol Hcl (Ultram) PHA 07/21/24 In Process 10:30 Electrocardigram EKG 07/21/24 Logged 15:05 Morphine Sulfate PHA 07/21/24 In Process Injection 13:15 Carotid Duplx W Color US 07/21/24 Verified DOP 15:14 Echo 2d Mode Cardiac US 07/21/24 Verified DOP 15:14 Erythrocyte LAB 07/21/24 Verified Sedimentation Rate 15:14 C-Reactive Protein LAB 07/21/24 Verified 15:14 Lipid Panel LAB 07/22/24 Verified 04:00 Date of Service: Jul 21, 2024 Billing Provider: JAMEY JONES MD Common Visit Codes: [id number] INP/OBS CARE(HIGH) JAMEY JONES MD Jul 21, 2024 15:18
--- NOTE | 2024-07-21 16:44 | DVH ---
Carotid Duplex Clinical History: cva Comparison: None Technique: Duplex Doppler evaluation of the extracranial carotid and vertebral arteries including color Doppler and spectral/pulsed waveform analysis was performed. Findings: RIGHT SIDE: The peak systolic velocities are 87 cm/s in the CCA, 80 cm/s in the ICA. The ICA/CCA ratio is 0.8. The external carotid artery is patent with peak systolic velocity of 82 cm/s proximally. There is appropriate antegrade flow in the right vertebral artery. LEFT SIDE: The peak systolic velocities are 89 cm/s in the CCA, 91 cm/s in the ICA. The ICA/CCA ratio is 1.0. The external carotid artery is patent with peak systolic velocity of 82 cm/s proximally. There is appropriate antegrade flow in the left vertebral artery. IMPRESSION: No hemodynamically significant stenosis noted in the right carotid system. No hemodynamically significant stenosis noted in the left carotid system. Reference: Radiology 2003; 229:340-346 Normal ICA PSV is <125 cm/sec and no plaque or intimal thickening is visible sonographically additional criteria include ICA/CCA PSV ratio <2.0 and ICA EDV <40 cm/sec <50% ICA stenosis ICA PSV is <125 cm/sec and plaque or intimal thickening is visible sonographically additional criteria include ICA/CCA PSV ratio <2.0 and ICA EDV <40 cm/sec 50-69% ICA stenosis ICA PSV is 125-230 cm/sec and plaque is visible sonographically additional criteria include ICA/CCA PSV ratio of 2.0-4.0 and ICA EDV of 40-100 cm/sec 70% ICA stenosis but less than near occlusion ICA PSV is >230 cm/sec and visible plaque and luminal narrowing are seen at herndon-scale and color Dopp ler ultrasound (the higher the Doppler parameters lie above the threshold of 230 cm/sec, the greater the likelihood of severe disease) additional criteria include ICA/CCA PSV ratio >4 and ICA EDV >100 cm/sec
[2024-07-21 17:35] LABS: Erythrocyte Sedimentation Rate 2 mm/hr (0-20)
--- NOTE | 2024-07-21 18:30 | DVHSR ---
APPROVED REPORT EXAM: Two-dimensional and M-mode echocardiogram with Doppler and color Doppler. Blood Pressure: 110/60 mmHg INDICATION CVA? RISK FACTORS Height: 5'6", Weight: 167 DIMENSIONS LVDd4.4 (3.8-5.7cm)LA (2D)3.5 (1.9-4.0cm)Aortic Root3.1 (2.0-3.7cm) LVDs3.0 (2.5-4.0cm)LA (MM) (1.9-4.0cm)Aortic Cusp Exc1.7 (1.5-2.0cm) EF (%) 60.0 (55-70%)Rt. Atrium3.6 (1.9-4.0cm)Asc. Aorta cm IVSd1.1 (0.7-1.1cm)RV (D)3.3 (1.8-2.4cm) PWd1.0 (0.7-1.1cm) Mitral Valve MitralMitral Stenosis E wave0.92m/sMV Mean GR.mmHg A wave0.89m/sMV Peak GR.mmHg E/A ratio1.02D MVAcm2 DECEL [id number] 1/2 Timems Aortic Valve Aortic ValveAortic Stenosis V10.90m/Alexander Mean GR.5mmHg V21.60m/Alexander Peak GR.10mmHg LVOT Diameter1.9 (1.8-2.4cm)Doppler AVA1.59cm2 Pulmonic Valve V21.06m/s Other Information Technically limited study due to body habitus, patient lying flat. Conclusion Sinus rhythm RV enlargement Normal valves, Mild Aortic sclerosis, Calcified nodule at base of right coronary cusp. Normal LV function, EF of 65% with normal RV function. Doppler is normal No masses or vegetations. No pericardial effusion.
[2024-07-22] VITALS (8 sets, daily range): BP systolic 99–126; BP diastolic 61–90; PULSE 56–72; RESP 16–20; TEMP 97.2–98.5; O2SAT 93–98
[2024-07-22 06:44] LABS: LDL Cholesterol 88 mg/dL (< 100); Triglycerides 98 mg/dL (< 150)
[2024-07-22 06:45] LABS: Cholesterol 148 mg/dL (< 200)
[2024-07-22 06:46] LABS: HDL Cholesterol 41 mg/dL (40-59)
--- NOTE | 2024-07-22 14:34 | DVHPN2 ---
Subjective Feels BETTER IN THE LEFT SIDE Reviewed: Care Plan, H&P, Labs, Medications, Previous Orders, Radiology Changes from previous H/P or p: No Changes Musculoskeletal: other Objective Vitals Vital Signs Date Time Temp Pulse Resp B/P (MAP) Pulse Ox O2 Delivery O2 Flow Rate FiO2 07/22/24 12:45 68 15 115/62 07/22/24 12:44 98.2 98 98.2 07/22/24 08:30 Room Air* 0 21 Intake/Output Intake and Output 07/22/24 07:00 Intake Total 2495 ml Output Total 1725 ml Balance 770 ml Intake Oral 2495 ml Output Urine Total 1225 ml Urine/Stool Mix 500 ml # Voids 1 # Bowel Movements 2 General Appearance: Alert, Oriented X3, Cooperative, No acute distress HEENT: Atraumatic Lungs: Clear to auscultation Cardiovascular: Regular rate Neuro: Other (Seems there is weakness in the left upper left lower extremity and decreased sensory in upper and left lower extremity. Questionable.) Medications Current Medications Medications Dose Ordered Sig/Indigo Route Start Time Stop Time Status Last Admin Dose Admin Ondansetron HCl 4 mg Q4HP PRN IV 07/20/24 10:45 Acetaminophen 650 mg Q6HP PRN PO 07/20/24 10:45 07/21/24 11:04 650 MG Atorvastatin Calcium 20 mg HS PO 07/20/24 22:00 Amlodipine Besylate 10 mg DAILY PO 07/21/24 10:00 07/22/24 09:38 10 MG Lisinopril 40 mg DAILY PO 07/21/24 10:00 07/22/24 09:37 40 MG Metoprolol Succinate 100 mg DAILY PO 07/21/24 10:00 07/22/24 09:38 100 MG Aspirin 81 mg DAILY PO 07/21/24 10:00 07/22/24 09:36 81 MG Enoxaparin Sodium 40 mg DAILY SC 07/21/24 10:00 07/22/24 09:39 40 MG Tramadol HCl 50 mg Q6HP PRN PO 07/21/24 10:30 Morphine Sulfate 2 mg Q4HPRN PRN IV 07/21/24 13:15 07/22/24 12:05 2 MG Laboratory Results Laboratory Tests 07/21/24 04:32 Lipid panel Test 07/22/24 04:40 Cholesterol Level 148 mg/dL (< 200) HDL Cholesterol 41 mg/dL (40-59) Triglycerides Level 98 mg/dL (< 150) Assessment/Plan Assessment/Plan Left upper and left lower extremity weakness and numbness Hypertension Dyslipidemia History of [place] and PTCA Anxiety Depression History of methamphetamine and marijuana use Plan: REORDER HAD MRI. REORDERED NEUROLOGY CONSULT. Plan discussed with: Patient My Orders Orders - JAMEY JONES MD Procedure Category Date Status Time Carotid Duplx W Color US 07/21/24 Resulted DOP 15:14 Echo 2d Mode Cardiac US 07/21/24 Resulted DOP 15:14 Drug Screen LAB 07/21/24 Logged 15:15 Brain Head Wo Contrast MRI 07/22/24 Verified 14:29 Lorazepam 2mg/Ml Inj PHA 07/22/24 Verified (Ativan Inj) 14:30 * Neurology Consult CONS 07/22/24 Verified 14:29 Date of Service: Jul 22, 2024 Billing Provider: JAMEY JONES MD Common Visit Codes: [id number] INP/OBS CARE(HIGH) JAMEY JONES MD Jul 22, 2024 14:34
--- NOTE | 2024-07-22 14:36 | ECG ---
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
[2024-07-22 20:46] LABS: Urine Bacteria None Seen /hpf (None Seen)
[2024-07-22 20:51] LABS: Urine Blood Negative /uL (Negative); Urine Clarity Clear (Clear); Urine Color Light-Yellow (Yellow); Urine Protein, UAD Negative (Negative); Urine Specific Gravity 1.021 (1.001-1.035); Urine Squamous Epithelial Cell None Seen /hpf (<5); Urine Urobilinogen Normal (Negative); Urine WBC 1 /HPF (0-3)
[2024-07-22 21:07] LABS: Cannabinoid Screen, Urine Pos (NEGATIVE); Opiate Scree,Urine Pos (NEGATIVE)
[2024-07-22 21:10] LABS: Amphetamine Screen, Urine Neg (NEGATIVE); Barbiturate Scree,Urine Neg (NEGATIVE); Benzodiazephine Screen, Urine Neg (NEGATIVE); Cocaine Screen, Urine Neg (NEGATIVE); Phencyclidine Screen, Urine Neg (NEGATIVE)
[2024-07-23] VITALS (8 sets, daily range): BP systolic 108–147; BP diastolic 71–88; PULSE 56–89; RESP 16–18; TEMP 97.2–99.5; O2SAT 94–96
[2024-07-23] MEDS: LORazepam 2MG/ML-1ML VIAL IM ONE (08:58)
[2024-07-23] MEDS ORDERED: LORazepam 2MG/ML-1ML VIAL IV PRN ×2 (12:00)
--- NOTE | 2024-07-23 20:56 | DVHPN2 ---
Subjective continues to feel left sided numbness and weakness refusing MRI due to being claustrophobic Reviewed: Care Plan, H&P, Labs, Medications, Previous Orders, Radiology Changes from previous H/P or p: No Changes Musculoskeletal: other Objective Vitals Vital Signs Date Time Temp Pulse Resp B/P (MAP) Pulse Ox O2 Delivery O2 Flow Rate FiO2 07/23/24 17:00 97.7 56 18 126/82 (97) 94 97.7 07/23/24 08:00 Room Air* 0 21 Intake/Output Intake and Output 07/23/24 07:00 Intake Total 2200 ml Balance 2200 ml Intake Oral 2200 ml # Voids 11 # Bowel Movements 1 General Appearance: Alert, Oriented X3, Cooperative, No acute distress HEENT: Atraumatic Lungs: Clear to auscultation Cardiovascular: Regular rate Neuro: Other (Seems there is weakness in the left upper left lower extremity and decreased sensory in upper and left lower extremity. Questionable.) Medications Current Medications Medications Dose Ordered Sig/Indigo Route Start Time Stop Time Status Last Admin Dose Admin Ondansetron HCl 4 mg Q4HP PRN IV 07/20/24 10:45 Acetaminophen 650 mg Q6HP PRN PO 07/20/24 10:45 07/21/24 11:04 650 MG Atorvastatin Calcium 20 mg HS PO 07/20/24 22:00 07/22/24 21:32 20 MG Amlodipine Besylate 10 mg DAILY PO 07/21/24 10:00 07/23/24 11:06 10 MG Lisinopril 40 mg DAILY PO 07/21/24 10:00 07/23/24 11:07 40 MG Metoprolol Succinate 100 mg DAILY PO 07/21/24 10:00 07/23/24 11:07 100 MG Aspirin 81 mg DAILY PO 07/21/24 10:00 07/23/24 11:06 81 MG Enoxaparin Sodium 40 mg DAILY SC 07/21/24 10:00 07/23/24 11:08 40 MG Tramadol HCl 50 mg Q6HP PRN PO 07/21/24 10:30 Morphine Sulfate 2 mg Q4HPRN PRN IV 07/21/24 13:15 07/23/24 15:51 2 MG Lorazepam 2 mg Q1HP PRN IV 07/23/24 12:00 Laboratory Results Laboratory Tests 07/21/24 04:32 Urinalysis Test 07/22/24 20:45 Urine Color Light-yellow (Yellow) Urine Clarity Clear (Clear) Urine pH 7.0 (5.0-9.0) Urine Specific [place] 1.021 (1.001-1.035) Urine Protein Negative (Negative) Urine Ketones Negative (Negative) Urine Blood Negative /uL (Negative) Urine Nitrite Negative (Negative) Urine Bilirubin Negative (Negative) Urine Urobilinogen Normal mg/dL (Negative) Urine Leukocyte Esterase Negative /uL (Negative) Urine RBC 3 /hpf (0 - 3) Urine Microscopic WBC 1 /HPF (0-3) Urine Squamous Epithelial Cells None seen /hpf (<5) Urine Bacteria None seen /hpf (None Seen) Urine Glucose Normal mg/dL (Normal) Assessment/Plan Assessment/Plan Left upper and left lower extremity weakness and numbness Hypertension Dyslipidemia History of [place] and PTCA Anxiety Depression History of methamphetamine and marijuana use Plan: REORDER HAD MRI. REORDERED NEUROLOGY CONSULT. Plan discussed with: Patient My Orders Orders - ASHLEY MURPHY MD Procedure Category Date Status Time Lorazepam 2mg/Ml Inj PHA 07/23/24 In Process (Ativan Inj) 12:00 Date of Service: Jul 23, 2024 Billing Provider: ASHLEY MURPHY MD Common Visit Codes: [id number] INP/OBS CARE(HIGH) ASHLEY MURPHY MD Jul 23, 2024 20:56
[2024-07-24] VITALS (8 sets, daily range): BP systolic 105–125; BP diastolic 66–77; PULSE 54–87; RESP 16–18; TEMP 97.1–98.4; O2SAT 93–96
[2024-07-24] MEDS ORDERED: ASPI-543 PO (12:20)
--- NOTE | 2024-07-24 15:19 | ECG ---
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
[2024-07-24] MEDS: MELATONIN 5 MG TAB PO ONE (23:27)
[2024-07-25 01:00] VITALS: BP 126/66; PULSE 70; RESP 18; TEMP 98.5; O2SAT 96
[2024-07-25 05:00] VITALS: BP 104/51; PULSE 65; RESP 16; TEMP 98.3; O2SAT 95
[2024-07-25 08:00] VITALS: RESP 17; O2SAT 96
[2024-07-25 09:18] VITALS: BP 113/77; PULSE 50; RESP 17; TEMP 97.9; O2SAT 96
[2024-07-25 13:09] VITALS: BP 104/77; PULSE 62; RESP 18; TEMP 97.8; O2SAT 96
[2024-07-25 15:34] VITALS: BP 115/79; PULSE 61; RESP 17; TEMP 98.6; O2SAT 98
[2024-07-25] MEDS ORDERED: MELATONIN 5 MG TAB PO ONE (22:00)
== END 2024-07-25 16:10 | disposition home or self-care (01) | DRG 880 ==
LOC: ER 04:09 → OVERFLOW 10:32 → CENTRAL 10:35
PROVIDERS: ADMIT Hospitalist; ATTEND Hospitalist
DX: F41.9 Anxiety disorder, unspecified (principal); R53.1 Weakness; R20.0 Anesthesia of skin; E87.6 Hypokalemia; I10 Essential (primary) hypertension; E78.5 Hyperlipidemia, unspecified; F15.90 Other stimulant use, unspecified, uncomplicated; F12.90 Cannabis use, unspecified, uncomplicated; F17.210 Nicotine dependence, cigarettes, uncomplicated; E80.6 Other disorders of bilirubin metabolism; F19.10 Other psychoactive substance abuse, uncomplicated; F32.A Depression, unspecified; Z98.61 Coronary angioplasty status; Z88.8 Allergy status to other drugs, medicaments and biological substances; Z88.0 Allergy status to penicillin; I25.2 Old myocardial infarction; Z79.899 Other long term (current) drug therapy
CPT/HCPCS: 36415; 70450; 71045; 80053; 80061; 80307; 81001; 83735; 83880; 84484; 85025; 85610; 85652; 85730; 86141; 92610; 93005; 93306; 93886; 96372; 96374; 96375; 97110; 97116; 97163; 99291; G0378; J2405; J3101

== ENCOUNTER 2025-03-08 14:11 | Emergency (ER) | payer MEDICARE, MEDICAID ==
[~2025-03-08] VITALS: Ht 167.6 cm; Wt 74.4 kg
[~2025-03-08 14:11] MED LIST: AMLO1TAB23 PO; ASPI-543 PO; ATOR20TA50 PO; LISI40TA16 PO; METO1TAB9 PO
--- NOTE | 2025-03-08 14:34 | ED.PDOC ---
HPI (NEURO) HPI Comments Patient is a 54-year-old male with past medical history of Hypertension, dyslipidemia, TIA, DE s/p 2 CHAO, anxiety, depression, who comes in due to left- sided weakness and a headache. According to the patient, approximately around 12:30., he started experiencing a severe headache which later evolved to numbness involving left upper extremity and left half of his face, patient notes he was feeling confused and dizzy which is what prompted him to come to the ER. Patient noted that he woke up around 11:30 a.m. and felt completely normal at that time, shortly after waking up initially he started feeling a headache, later when he was in the bathroom passing a bowel movement he started experiencing his symptoms of numbness and weakness, which per patient was around 12:30 p.m.. Of note, patient had a TIA with complete resolution 8 months ago. Code stroke was called and patient was taken to head CT which was negative for any intracranial bleed, stat Neurology consult was ordered and per neurologist recommendation TNK was pushed at 3:15 p.m, by 3:50 p.m. patient was noted to have significant improvement in facial droop, numbness, disorientation as well as left lower extremity weakness, left upper extremity weakness also improved somewhat. Per patient, last known well time 12:30 p.m.. Peer to peer held, and patient was transferred to [facility] around 4:06 p.m.. Chief Complaint: Left Sided Weakness Time Seen by MD: 14:15 Primary Care Provider: CARMINE Mode of Arrival: Ambulatory Past Medical History PAST MEDICAL HISTORY: DE Past Medical History (Contd): Hypertension, dyslipidemia, TIA, DE s/p 2 CHAO, anxiety, depression Surgical History: Hernia Repair Surgical History (Cont'd) Hernia repair surgery, PTCA Family History Family History: Unknown Social History Smoker: Cigarettes Alcohol: Denies ETOH Use Drugs: Marijuana, Methamphetamine Lives In: Home Constitutional: reports: weakness; denies: chills, diaphoresis, fatigue, fever, malaise, sweats, others EENTM: denies: blurred vision, double vision, ear bleeding, ear discharge, ear drainage, ear pain, ear ringing, eye pain, eye redness, hearing loss, mouth pain, mouth swelling, nasal discharge, nose bleeding, nose congestion, nose pain, photophobia, tearing, throat pain, throat swelling, voice changes, others Respiratory: denies: cough, hemoptysis, orthopnea, SOB at rest, shortness of breath, SOB with excertion, stridor, wheezing, others Cardiovascular: denies: chest pain, dizzy spells, diaphoresis, Dyspnea on exertion, edema, irregular heart beat, left arm pain, lightheadedness, palpitations, PND, syncope, others Gastrointestinal: reports: nausea; denies: abdomen distended, abdominal pain, blood streaked bowels, constipated, diarrhea, dysphagia, difficulty swallowing, hematemesis, melena, poor appetite, poor fluid intake, rectal bleeding, rectal pain, vomiting, others Genitourinary: denies: burning, dysuria, flank pain, frequency, hematuria, incontinence, penile discharge, penile sore, pain, testicle pain, testicle swelling, urgency, others Neurological: reports: dizziness, left sided numbness, paresthesia, speech problems, tingling, weakness; denies: fainting, headache, left sided weakness, numbness, pre-existing deficit, right sided numbness, right sided weakness, s eizure, tremors, others Musculoskeletal: denies: back pain, gout, joint pain, joint swelling, muscle pain, muscle stiffness, neck pain, others Integumetry: denies: bruises, change in color, change in hair/nails, dryness, laceration, lesions, lumps, rash, wounds, others Allergic/Immunocompromised: denies: Difficulty Healing, Frequent Infections, Hives, Itching, others Hematologic/Lymphatic: denies: anemia, blood clots, easy bleeding, easy bruising, swollen glands, others Endocrine: denies: excessive hunger, excessive sweating, excessive thirst, excessive urination, flushing, intolerance to cold, intolerance to heat, unexplained weight gain, unexplained weight loss, others Psychiatric: denies: anxiety, bipolar disorder, depression, hopeless, panic disorder, schizophrenia, sleepless, suicidal, others Physical Exam General Appearance: Mild Distress HEENT: Normal ENT Inspection, PERRL/EOMI Neck: Non-Tender, Normal, Normal Inspection Respiratory: No Accessory Muscle Use, No Respiratory Distress, Normal Breath Sounds Cardiovascular: No Edema, No Murmur, Tachycardia Breast Exam: Deferred Gastrointestinal: Non Tender, Soft Genitalia: Deferred Pelvic: Deferred Rectal: Rectal Exam not done Extremities: No calf tenderness, No pedal edema Neurologic: Abnormal Gait, Aphasia, Dizziness, Facial Droop, Headache, Motor Weakness, Normal Affect, R/L Numbness, Sensory Deficit, Speech Problem Cerebellar Function: Ataxia Reflexes: NOT DONE Skin: Dry, Normal Color, Warm Peripheral Pulses: 2+ dorsalis pedis (R), 2+ dorsalis pedis (L) Lymphatic: NOT DONE Was a procedure done? Was a procedure done?: No Differential Diagnosis (SZ) Seizure: CVA/TIA CVA: CVA X-Ray, Labs, Meds, VS Vital Signs Date Time Temp Pulse Resp B/P (MAP) Pulse Ox O2 Delivery O2 Flow Rate FiO2 03/08/25 15:50 98.2 76 15 133/92 (106) 96 98.2 03/08/25 15:45 98.0 83 15 138/94 (109) 96 98.0 03/08/25 15:32 71 19 133/84 (100) 96 03/08/25 15:26 89 157/103 03/08/25 15:06 93 03/08/25 14:40 94 15 97 Room Air* 0 03/08/25 14:40 97.9 94 16 158/100 (119) 97 97.9 03/08/25 14:17 98.0 105 18 157/110 98 98.0 Lab Test 03/08/25 15:33 03/08/25 14:38 03/08/25 14:28 Range/Units Troponin I High Sensitivity 6 7 </=54 ng/L White Blood Count 6.9 4.4-10.8 10^3/uL Red Blood Count 4.73 4.5-5.90 10^6/uL Hemoglobin 15.3 13.5-17.5 g/dL Hematocrit 44.3 41.0-53.0 % Mean Corpuscular Volume 93.7 80.0-100.0 fL Mean Corpuscular Hemoglobin 32.4 H 28.0-32.0 pg Mean Corpuscular Hemoglobin Concent 34.6 32.0-36.0 g/dL Red Cell Distribution Width 13.2 11.8-14.3 % Platelet Count 238 140-450 10^3/uL Mean Platelet Volume 10.2 6.9-10.8 fL Neutrophils (%) (Auto) 68.2 37.0-80.0 % Lymphocytes (%) (Auto) 17.4 10.0-50.0 % Monocytes (%) (Auto) 12.7 H 0.0-12.0 % Eosinophils (%) (Auto) 1.0 0.0-7.0 % Basophils (%) (Auto) 0.7 0.0-2.0 % Neutrophils # (Auto) 4.7 1.6-8.6 10 ^3/uL Lymphocytes # (Auto) 1.2 0.4-5.4 10 ^3/uL Monocytes # (Auto) 0.9 0-1.3 10 ^3/uL Eosinophils # (Auto) 0.1 0-0.8 10 ^3/uL Basophils # (Auto) 0.1 0-0.2 10 ^3/uL Nucleated Red Blood Cells 0.1 % Prothrombin Time 10.3 9.3-11.8 sec Prothrombin Time INR 0.97 0.9-1.15 Activated Partial Thromboplast Time 28.5 24.5-34.5 SEC Sodium Level 142 136-145 mmol/L Potassium Level 2.9 L 3.5-5.1 mmol/L Chloride Level 101 98-107 mmol/L Carbon Dioxide Level 30 20-31 mmol/L Anion Gap 11 5-15 Blood Urea Nitrogen 16 9-23 mg/dL Creatinine 1.08 0.700-1.30 mg/dL Glomerular Filtration Rate Calc 82 >90 mL/min BUN/Creatinine Ratio 14.8 10.0-20.0 Serum Glucose 103 74-106 mg/dL Calcium Level 9.6 8.7-10.4 mg/dL Magnesium Level 2.1 1.6-2.6 mg/dL Total Bilirubin 0.5 0.2-1.0 mg/dL Aspartate Amino Transferase (AST) 33 13-40 U/L Alanine Aminotransferase (ALT) 30 7-40 U/L Alkaline Phosphatase 77 46-116 U/L B-Type Natriuretic Peptide 12.87 0-100 pg/mL Total Protein 7.3 5.7-8.2 g/dL Albumin 4.5 3.2-4.8 g/dL Plasma/Serum Blood Alcohol < 3.0 <10 mg/dL POC Glucose 120 H 70-106 mg/dl Current Medications Medications (Trade) Dose Ordered Sig/Indigo Route Start Time Stop Time Status Last Admin Labetalol HCl (Labetalol HCl) 10 mg ONCE ONCE IV 03/08/25 15:00 03/08/25 15:12 DC 03/08/25 15:26 Tenecteplase (Tnkase) 19 mg ONCE ONCE IV 03/08/25 15:00 03/08/25 15:13 DC 03/08/25 15:32 Time of 1ST Reevaluation: 14:45 Reevaluation 1ST: Unchanged Time of 2ND Reevaluation: 15:15 Reevaluation 2ND: Unchanged Time of 3RD Reevaluation: 15:50 Reevaluation 3RD: Improved Patient Education/Counseling: Diagnosis, Treatment, Prognosis, Need For Follow Up Family Education/Counseling: No Family Present Departure 1 Departure Time of Disposition: 16:06 Impression: Primary Impression: Ischemic stroke Disposition: 51 HOSPICE/MEDICAL FACILITY Condition: Guarded Comments Approximately 30-35 minutes after administering TNK, patient was noted to have significant improvement in left-sided facial droop, improvement in slurring of the speech/dysarthria was also noted. Left lower extremity weakness improved, however, left upper extremity weakness minimally improved. Patient notes feeling improved from prior. peer to peer conversation was held with [facility] and patient was transferred at 1606. After improvement of initial symptoms, patient initially remained persistent on wanting to go home to tend to his animals, however, ultimately agreed to be transferred to [facility], patient was able to get up from the bed on his own and walked to the [facility] without any problems, a significant improvement in his gait from prior. En route [facility], patient told the paramedics he does not want to go and insisted on being driven back to the [facility], patient returned to the hospital and left AMA despite multiple attempts to try to explain the severity of the situation to him, patient did not listen and left against medical advice to tend to his animals. Critical Care Note Critical Care Time?: No Stability Stability form required: JIN Juarez RESIDENT Mar 08, 2025 14:33
[2025-03-08 14:40] VITALS: PULSE 94; RESP 15; O2SAT 97
[2025-03-08] MEDS ORDERED: LABETALOL HCL 20 MG/4 ML VL IV ONE (14:51)
--- NOTE | 2025-03-08 14:58 | DVH ---
CLINICAL HISTORY: left sided weakness TECHNIQUE: Single view of the chest was obtained. COMPARISON: XY CHEST XRAY 1 VIEW on DOS: 07/20/24, XR CHEST 1 VIEW on DOS: 10/31/23 FINDINGS: The heart size and pulmonary vasculature are normal. The lungs are clear. IMPRESSION: NO ACUTE CARDIOPULMONARY PROCESS.
[2025-03-08 15:08] LABS: Hematocrit 44.3 % (41.0-53.0); Hemoglobin 15.3 g/dL (13.5-17.5); Mean Corpuscular Hemoglobin 32.4 pg (28.0-32.0); Mean Corpuscular Volume 93.7 fL (80.0-100.0); Nucleated Red Blood Cells % 0.1 %
--- NOTE | 2025-03-08 15:12 | DVH ---
EXAM: CT STROKE CTH HISTORY: left sided weakness, blurry vision, history of TIA COMPARISON: CT STROKE CTH on DOS: 07/20/24, CT BRAIN on DOS: 07/19/24, CT BRAIN on DOS: 10/31/23, CT BRAIN on DOS: 07/14/22 TECHNIQUE: Noncontrast axial CT images of the head were performed. Sagittal and coronal reformatted images were obtained. This CT exam was performed using 1 or more of the following dose reduction techniques: Automated exposure control, adjustment of the mA and/or kv according to patient size, or the use of iterative reconstruction techniques. Radiation Dose: CTDI volume is 63.36 mGy. Dose-length product is 1199.29 mGy*cm FINDINGS: No intracranial hemorrhage, mass, midline shift, hydrocephalus, or evidence of acute large vessel infarct. There is mild mucosal thickening of the maxillary sinuses. There are likely old fractures of the bilateral lamina papyracea, and possibly also right orbital floor, although patient motion artifact limits evaluation of these structures. There are likely old fractures of the bilateral nasal bones. The bilateral mastoid air cells and middle ear spaces are clear. No cranial fracture or scalp edema. IMPRESSION: 1. No acute intracranial process. 2. Mild bilateral maxillary sinus disease. 3. Probable multiple old facial bone fractures.
[2025-03-08] MEDS: LABETALOL HCL 20 MG/4 ML VL IV ONE (15:14)
--- NOTE | 2025-03-08 15:20 | BSKYNEURO ---
[place] Neuro Note # Demographics Consult Type: Acute Stroke Level 1 (0-4.5 hrs) Patient Location: Emergency Room First Name: Santos Last Name: Shimon Date of : 1970 Age: 54 Gender: Male Facility: [facility] Time of Initial Page (): 03/08/2025 14:27 First Contact with Site (): 03/08/2025 14:27 # HPI History: 54 y/o M presents with DEL ANGEL, Lt face, arm and leg weakness and numbness with onset at 1230PM. He denies Hx of migraines. Last Known Normal: 1230PM # Scores Time of exam and NIHSS (): 03/08/2025 14:30 Level of Consciousness 1a: [0] = Alert; keenly responsive LOC Questions 1b: [0] = Answers both questions correctly LOC Commands 1c: [0] = Performs both tasks correctly Best Gaze 2: [0] = Normal Visual 3: [0] = No visual loss Facial Palsy 4: [1] = Minor paralysis Motor Arm Left 5a: [1] = Drift Motor Arm Right 5b: [0] = No drift Motor Leg Left 6a: [1] = Drift Motor Leg Right 6b: [0] = No drift Limb Ataxia 7: [0] = Absent Sensory 8: [1] = [id number] sensory loss Best Language 9: [0] = No aphasia Dysarthria 10: [0] = Normal Extinction and Inattention 11: [0] = No abnormality NIHSS Total: 4 # Exam SBP: 148 DBP: 97 # PMH-FH-SH Past Medical History: - hyperlipidemia - hypertension - TIA # Data Time Head CT personally read by me (): 03/08/2025 14:[address]: - no bleed # Assessment Impression: - Ischemic Stroke (Acute) # Plan Thrombolytic/Intervention: IV Thrombolysis Thrombolytic Dosing: IV tenecteplase 0.25 mg/kg, max dose 25 mg; single bolus IVP over 5 seconds Intraarterial Exclusion: - clinical exam not consistent with presence of large vessel occlusion (LVO), can reconsider if LVO found on vascular imaging Time IV Thrombolytic Recommended (): 03/08/2025 14:55 Target Blood Pressure: - SBP < 180 - DBP < 105 Labs: - lipid panel - urine drug screen - CBC - comprehensive metabolic panel Imaging: (urgency: STAT): - CT Angiogram Head and CT Angiogram Neck AND call back with results if abnormal Imaging: (urgency: routine): - MRI Brain without contrast Diagnostic Test: - echo with bubble study Therapy/Evaluation: - PT/OT evaluation - speech/swallow consultation Thrombolytic Administration Recommendations: - I reviewed the risks/benefits/alternatives of IV thrombolytic therapy with the patient. They understand there is potential of life threatening hemorrhage from IV thrombolysis. I stated that I believe benefits outweighs risk. They wish to proceed with IV thrombolytic therapy. - I have collected independent history specific to time last normal or last known well. We have collaborated with the ED provider and at this time, we have the most current timeline with the information that is available. - BP goal< 180/105 for 24hrs post Thrombolytic administration - Use Labetalol 10-20mg IV prn or Nicardipine gtt to maintain BP parameters - No antiplatelets or anticoagulants for next 24 hrs unless indicated for emergent IA procedure or other life threatening situation - ICU admission - Call back if there is any decline in neurological condition Other: - If patient has any neurological deterioration please call me back immediately - LDL < 70 - telemetry monitoring permissive HTN up to 180/105 for 24hrs # Logistics Attestation of consult completion: The patient is located at: [facility]. Facility staff participated in the visit. I performed this telemedicine visit from my offsite office utilizing interactive 2 way audio and visual telecommunication technology at the request of the onsite emergency room provider. Total time spent in telemedicine encounter: I spent 35 minutes reviewing clinical data and/or imaging, obtaining history, examining the patient, communicating with the onsite care team, and in preparation of this report. Critical Care time: 35 minutes of this encounter were critical care time. Due to a high probability of clinically significant, life-threatening neurologic deterioration, the patient required my highest level of preparedness to intervene emergently. I spent this critical care time managing the patient in conjunction with on-site providers who requested my consultation. In addition to the above, this critical care time included recommendation and review of studies, including imaging; arranging an urgent treatment and management plan with on-site providers; evaluation of patient's response to treatment; and documentation. This critical care time was performed to assess and manage the high probability of imminent, life-threatening deterioration that could result in neurologic catastrophe. # Demographics First Name: Santos Last Name: Shimon Facility: [facility] Electronically signed at 03/08/2025 15:20 ([place] Time) by DO Jeimy Murrieta ELIZABETH A DO Mar 08, 2025 15:20
[2025-03-08 15:24] LABS: Alanine Aminotransferase 30 U/L (7-40); Alkaline Phosphatase 77 U/L (46-116); Anion Gap 11 (5-15); BUN/Creatinine Ratio 14.8 (10.0-20.0); Blood Urea Nitrogen 16 mg/dL (9-23); Calcium 9.6 mg/dL (8.7-10.4); Carbon Dioxide 30 mmol/L (20-31); Chloride 101 mmol/L (98-107); Glucose 103 mg/dL (74-106); Magnesium 2.1 mg/dL (1.6-2.6); Sodium 142 mmol/L (136-145); Total Protein 7.3 g/dL (5.7-8.2)
[2025-03-08 15:25] LABS: Albumin 4.5 g/dL (3.2-4.8); Bilirubin, Total 0.5 mg/dL (0.2-1.0)
[2025-03-08] MEDS: TENECTEPLASE 50mg/10ml KIT IV ONE ×2 (15:25→15:36)
[2025-03-08 15:26] LABS: Potassium 2.9 mmol/L (3.5-5.1)
[2025-03-08 15:35] LABS: INR 0.97 (0.9-1.15); Partial Thromboplastin Time 28.5 SEC (24.5-34.5); Prothrombin Time 10.3 sec (9.3-11.8)
[2025-03-08 15:50] VITALS: BP 133/92; PULSE 76; RESP 15; TEMP 98.2; O2SAT 96
--- NOTE | 2025-03-10 01:23 | ECG ---
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
== END 2025-03-08 15:25 | disposition short-term general hospital (02) ==
LOC: ER 14:11
DX: I63.9 Cerebral infarction, unspecified (principal); I25.2 Old myocardial infarction; E78.5 Hyperlipidemia, unspecified; F17.210 Nicotine dependence, cigarettes, uncomplicated; I10 Essential (primary) hypertension; Z86.73 Personal history of transient ischemic attack (TIA), and cerebral infarction without residual deficits; Z98.890 Other specified postprocedural states
CPT/HCPCS: 36415; 37195; 70450; 71045; 80053; 80320; 82947; 83735; 83880; 84484; 85025; 85610; 85730; 93005; 96374; 96375; 99285; J3101; 82962